=== PATIENT | male | born 1995 | race Caucasian/White ===

== ENCOUNTER 2022-05-18 15:07 | Emergency (ER) | payer SELFPAY ==
[~2022-05-18] VITALS: Ht 177.8 cm; Wt 80.0 kg
[2022-05-18 15:26] VITALS: BP 106/70
[2022-05-18] MEDS ORDERED: DOXYCYCLINE HYCLATE 100MG CAPSULE PO ONE (17:00)
[2022-05-18] MEDS ORDERED: CEFTRIAXONE SODIUM 500 MG/VIAL IM ONE (17:00)
[2022-05-18 17:13] LABS: CLARITY URINE TURBID (CLEAR); COLOR URINE YELLOW (YELLOW); KETONES URINE TRACE (NEGATIVE); LEUKOCYTE ESTERASE URINE 3+ (NEGATIVE); NITRITE URINE NEGATIVE (NEGATIVE); OCCULT BLOOD URINE 2+ (NEGATIVE); PH URINE 5.5 (4.5-8.0); PROTEIN URINE 1+ (NEGATIVE); SPECIFIC GRAVITY URINE 1.027 (1.005-1.030); UROBILINOGEN URINE 0.2 E.U./dL (0.2-1.0)
[2022-05-18] MEDS ORDERED: DOXY100C5 MT (17:48)
== END 2022-05-18 18:31 ==
LOC: ER 15:15
DX: Z20.2 Contact with and (suspected) exposure to infections with a predominantly sexual mode of transmission (principal); Z02.89 Encounter for other administrative examinations
CPT/HCPCS: 81003; 87086; 87591; 96372; 99283; J0696